=== PATIENT | female | born 1980 | race African-American/Black ===

== ENCOUNTER 2018-10-15 17:41 | Inpatient (IN) | payer MEDICAID ==
[~2018-10-15] VITALS: Ht 162.6 cm; Wt 57.2 kg
[2018-10-15] MEDS ORDERED: SODIUM CHLORIDE 0.9% 1,000 ML IV ONE (18:03)
[2018-10-15] MEDS ORDERED: LEVETIRACETAM 1000MG/100ML 100 ML IV ONE (18:15)
[2018-10-15 18:27] LABS: BASOPHILS % 1.3 % (0.0-2.0); EOSINOPHILS % 1.8 % (0.0-5.0); HEMATOCRIT. 29.6 % (36.0-48.0); HEMOGLOBIN. 9.1 g/dL (12.0-16.0); LYMPHOCYTES % 45.3 % (20.0-50.0); MEAN CORPUSCULAR HEMOGLOBIN 21.1 pg (28.0-32.0); MEAN CORPUSCULAR VOLUME 68.8 fL (81.0-99.0); MEAN PLATELET VOLUME 6.5 fl (7.4-10.4); MONOCYTES % 6.4 % (2.0-8.0); NEUTROPHILS % 45.2 % (40.0-76.0); PLATELET 370 x1000/uL (130-400); RED CELL DISTRIBUTION WIDTH 19.8 % (11.6-14.6)
[2018-10-15 18:30] LABS: CHLORIDE 111 mEq/L (98-107)
[2018-10-15 18:34] LABS: ETHANOL BLOOD 207 mg/dL
[2018-10-15 18:38] LABS: CREATINE KINASE 242 IU/L (26-192)
[2018-10-15 18:41] LABS: PHENOBARBITAL < 2.1 ug/mL (15.0-40.0)
[2018-10-15 18:42] LABS: CARBAMAZEPINE < 0.5 ug/mL (4-12)
[2018-10-15 18:48] LABS: PLATELET ESTIMATE NORMAL
[2018-10-15 18:52] LABS: CLARITY URINE CLEAR (CLEAR); COLOR URINE YELLOW (YELLOW); KETONES URINE TRACE (NEGATIVE); LEUKOCYTE ESTERASE URINE TRACE (NEGATIVE); NITRITE URINE NEGATIVE (NEGATIVE); OCCULT BLOOD URINE 3+ (NEGATIVE); PROTEIN URINE NEGATIVE (NEGATIVE); SPECIFIC GRAVITY URINE 1.025 (1.005-1.030)
[2018-10-15 19:20] LABS: *AMPHETAMINES SCREEN URINE PRESUMTIVE POSITIVE (NEGATIVE); *BARBITURATES SCREEN URINE NEGATIVE (NEGATIVE); *BENZODIAZEPINES SCREEN URINE PRESUMTIVE POSITIVE (NEGATIVE); *COCAINE SCREEN URINE PRESUMTIVE POSITIVE (NEGATIVE); METHADONE URINE SCREEN NEGATIVE (NEGATIVE)
[2018-10-15 19:21] LABS: CANNABINOID URINE SCREEN PRESUMTIVE POSITIVE (NEGATIVE); PHENCYCLIDINE URINE SCREEN PRESUMTIVE POSITIVE (NEGATIVE)
[2018-10-15 19:22] LABS: OPIATES URINE SCREEN NEGATIVE (NEGATIVE)
[2018-10-15] MEDS ORDERED: CEFTRIAXONE 1 G PREMIX 50 ML IV ONE (20:00)
[2018-10-15] MEDS ORDERED: SODIUM CHLORIDE 0.9% 1,000 ML IV SCH (21:08)
[2018-10-15] MEDS ORDERED: MAGNESIUM/ALUMINUM HYDROXIDE/SIMETHICONE 30ML UDC PO PRN (21:15)
[2018-10-15] MEDS ORDERED: LORAZEPAM 2MG/ML CPJ IV PRN ×2 (21:15)
[2018-10-15] MEDS ORDERED: CLONIDINE 0.1MG TABLET PO PRN (21:15)
[2018-10-15 22:15] VITALS: BP 113/71
[2018-10-15] MEDS: ACETAMINOPHEN 325MG TABLET PO PRN (23:24)
[2018-10-15 23:40] VITALS: BP 113/71
[2018-10-16] MEDS ORDERED: CEFTRIAXONE 1 G PREMIX 50 ML IV SCH (01:15)
[2018-10-16 04:00] VITALS: BP 111/68
[2018-10-16 07:58] LABS: BASOPHILS % 1.4 % (0.0-2.0); EOSINOPHILS % 1.9 % (0.0-5.0); HEMATOCRIT. 28.1 % (36.0-48.0); HEMOGLOBIN. 8.7 g/dL (12.0-16.0); LYMPHOCYTES % 30.7 % (20.0-50.0); MEAN CORPUSCULAR HEMOGLOBIN 21.4 pg (28.0-32.0); MEAN CORPUSCULAR VOLUME 69.1 fL (81.0-99.0); MEAN PLATELET VOLUME 6.7 fl (7.4-10.4); MONOCYTES % 10.6 % (2.0-8.0); NEUTROPHILS % 55.4 % (40.0-76.0); PLATELET 306 x1000/uL (130-400); RED BLOOD CELL COUNT 4.07 mill/uL (4.2-5.4); RED CELL DISTRIBUTION WIDTH 19.1 % (11.6-14.6)
[2018-10-16 08:00] VITALS: BP 102/41
[2018-10-16 08:24] LABS: CHLORIDE 111 mEq/L (98-107)
[2018-10-16 08:29] LABS: PHOSPHORUS 2.7 mg/dL (2.5-4.9)
[2018-10-16] MEDS: MULTIVITAMINS,THER W-MINERALS TABLET PO SCH (08:30)
[2018-10-16] MEDS: LEVETIRACETAM 500MG TABLET PO SCH ×2 (08:30→20:38)
[2018-10-16] MEDS: FOLIC ACID 1MG TABLET PO SCH (08:31)
[2018-10-16] MEDS: THIAMINE HCL 100MG TABLET PO SCH (08:34)
[2018-10-16 12:14] VITALS: BP 118/72
[2018-10-16 15:56] VITALS: BP 124/73
[2018-10-16 20:00] VITALS: BP 129/56
[2018-10-16] MEDS: CEFTRIAXONE 1 G PREMIX 50 ML IV SCH (20:38)
[2018-10-17] VITALS: BP 127/86
[2018-10-17 04:00] VITALS: BP 138/96
[2018-10-17] MEDS: ACETAMINOPHEN 325MG TABLET PO PRN ×2 (06:43→20:09)
[2018-10-17 07:07] LABS: CHLORIDE 108 mEq/L (98-107)
[2018-10-17 07:36] LABS: EOSINOPHILS % 3.7 % (0.0-5.0); HEMATOCRIT. 30.7 % (36.0-48.0); HEMOGLOBIN. 9.5 g/dL (12.0-16.0); LYMPHOCYTES % 32.4 % (20.0-50.0); MEAN CORPUSCULAR HEMOGLOBIN 21.3 pg (28.0-32.0); MEAN CORPUSCULAR VOLUME 68.8 fL (81.0-99.0); MEAN PLATELET VOLUME 6.8 fl (7.4-10.4); MONOCYTES % 8.8 % (2.0-8.0); NEUTROPHILS % 54.1 % (40.0-76.0); PLATELET 362 x1000/uL (130-400); RED BLOOD CELL COUNT 4.46 mill/uL (4.2-5.4); RED CELL DISTRIBUTION WIDTH 19.4 % (11.6-14.6)
[2018-10-17 08:00] VITALS: BP 131/78
[2018-10-17] MEDS: MULTIVITAMINS,THER W-MINERALS TABLET PO SCH (08:39)
[2018-10-17] MEDS: LEVETIRACETAM 500MG TABLET PO SCH ×2 (08:39→21:43)
[2018-10-17] MEDS: FOLIC ACID 1MG TABLET PO SCH (08:39)
[2018-10-17] MEDS: THIAMINE HCL 100MG TABLET PO SCH (08:39)
[2018-10-17 12:00] VITALS: BP 126/73
[2018-10-17 16:00] VITALS: BP 112/68
[2018-10-17 20:00] VITALS: BP 120/67
[2018-10-17] MEDS: CEFTRIAXONE 1 G PREMIX 50 ML IV SCH (21:43)
[2018-10-18] VITALS: BP 122/78
[2018-10-18 04:00] VITALS: BP 121/77
[2018-10-18 08:00] VITALS: BP 141/70
[2018-10-18] MEDS: LEVETIRACETAM 500MG TABLET PO SCH (08:06)
[2018-10-18] MEDS: MULTIVITAMINS,THER W-MINERALS TABLET PO SCH (08:06)
[2018-10-18] MEDS: FOLIC ACID 1MG TABLET PO SCH (08:06)
[2018-10-18] MEDS: THIAMINE HCL 100MG TABLET PO SCH (08:06)
[2018-10-18 10:25] VITALS: BP 141/70
== END 2018-10-18 11:13 | disposition home or self-care (01) | DRG 53 ==
LOC: ER 17:41 → 8WST 19:42 → EDBD 19:42 → EDBEDREQ 19:46 → EDBEDREQTM 19:46 → ENRESERV 20:26
PROVIDERS: ADMIT Family Medicine Adult Medicine; ATTEND Family Medicine Adult Medicine
DX: G40.909 Epilepsy, unspecified, not intractable, without status epilepticus (principal); Z78.1 Physical restraint status; D64.9 Anemia, unspecified; E87.6 Hypokalemia; F12.10 Cannabis abuse, uncomplicated; F14.10 Cocaine abuse, uncomplicated; F15.10 Other stimulant abuse, uncomplicated; F16.10 Hallucinogen abuse, uncomplicated; Y90.7 Blood alcohol level of 200-239 mg/100 ml; N39.0 Urinary tract infection, site not specified; F10.10 Alcohol abuse, uncomplicated; F13.10 Sedative, hypnotic or anxiolytic abuse, uncomplicated; Z59.0 Homelessness; Z91.19 Patient's noncompliance with other medical treatment and regimen; Z87.828 Personal history of other (healed) physical injury and trauma
CPT/HCPCS: 36415; 76770; 80048; 80156; 80165; 80184; 80185; 80305; 80320; 82550; 83735; 84100; 99291; J0696; J1953; J2060; J7030; A4315; G0480

== ENCOUNTER 2018-11-06 06:40 | Emergency (ER) | payer OTHER, MEDICAID ==
[~2018-11-06] VITALS: Ht 162.6 cm; Wt 63.0 kg
[2018-11-06 08:41] LABS: BASOPHILS % 1.4 % (0.0-2.0); EOSINOPHILS % 2.4 % (0.0-5.0); HEMATOCRIT. 28.9 % (36.0-48.0); HEMOGLOBIN. 8.8 g/dL (12.0-16.0); LYMPHOCYTES % 29.5 % (20.0-50.0); MEAN CORPUSCULAR HEMOGLOBIN 21.2 pg (28.0-32.0); MEAN CORPUSCULAR VOLUME 69.6 fL (81.0-99.0); MEAN PLATELET VOLUME 6.3 fl (7.4-10.4); MONOCYTES % 7.5 % (2.0-8.0); NEUTROPHILS % 59.2 % (40.0-76.0); PLATELET 356 x1000/uL (130-400); RED BLOOD CELL COUNT 4.15 mill/uL (4.2-5.4)
[2018-11-06 08:46] LABS: CLARITY URINE CLOUDY (CLEAR); COLOR URINE YELLOW (YELLOW); KETONES URINE TRACE (NEGATIVE); LEUKOCYTE ESTERASE URINE NEGATIVE (NEGATIVE); NITRITE URINE NEGATIVE (NEGATIVE); OCCULT BLOOD URINE NEGATIVE (NEGATIVE); PROTEIN URINE NEGATIVE (NEGATIVE); SPECIFIC GRAVITY URINE 1.025 (1.005-1.030); UROBILINOGEN URINE 0.2 E.U./dL (0.2-1.0)
[2018-11-06 08:47] LABS: CHLORIDE 104 mEq/L (98-107)
[2018-11-06 08:53] LABS: ETHANOL BLOOD < 10 mg/dL
[2018-11-06 09:03] LABS: PLATELET ESTIMATE NORMAL
[2018-11-06 09:09] LABS: *BARBITURATES SCREEN URINE NEGATIVE (NEGATIVE)
[2018-11-06 09:10] LABS: *AMPHETAMINES SCREEN URINE PRESUMTIVE POSITIVE (NEGATIVE); *BENZODIAZEPINES SCREEN URINE NEGATIVE (NEGATIVE); *COCAINE SCREEN URINE PRESUMTIVE POSITIVE (NEGATIVE); CANNABINOID URINE SCREEN PRESUMTIVE POSITIVE (NEGATIVE); METHADONE URINE SCREEN NEGATIVE (NEGATIVE); OPIATES URINE SCREEN NEGATIVE (NEGATIVE); PHENCYCLIDINE URINE SCREEN PRESUMTIVE POSITIVE (NEGATIVE)
[2018-11-06 12:14] VITALS: BP 115/59
== END 2018-11-06 12:17 | disposition home or self-care (01) ==
LOC: ER 06:40
DX: R07.89 Other chest pain (principal); R00.1 Bradycardia, unspecified; F15.10 Other stimulant abuse, uncomplicated; F14.10 Cocaine abuse, uncomplicated; F16.10 Hallucinogen abuse, uncomplicated; F12.10 Cannabis abuse, uncomplicated; F17.210 Nicotine dependence, cigarettes, uncomplicated; Z71.6 Tobacco abuse counseling
CPT/HCPCS: 36415; 71045; 80305; 80320; 81003; 84484; 99284; 99406; G0480